=== PATIENT | female | born 1990 | race Asian ===

== ENCOUNTER 2024-10-25 08:00 | Inpatient (IN) | payer BC ==
[2024-10-25] MEDS: LACTATED RINGERS SOLUTION 1000 ML INFUS.BAG IV ONE (08:30)
[2024-10-25 09:59] LABS: BASO % 0.1 % (0-2.0); HEMATOCRIT 28.3 % (32.4-45.2); HEMOGLOBIN 9.4 GM/dL (10.7-15.3); LYMPH % 24.5 % (8-40); MCH 28.7 pg (25.7-33.7); MCHC 33.4 g/dl (32.0-36.0); MEAN CELL VOLUME 85.9 fl (80-96); MEAN PLT VOLUME 7.2 fl (7.5-11.1); MONO % 5.6 % (3.8-10.2); NEUT % 65.8 % (42.8-82.8); PLATELET COUNT 263 10^3/uL (134-434); RBC 3.29 M/mm3 (3.60-5.2); RDW 16.5 % (11.6-15.6); WHITE BLOOD COUNT 8.8 K/mm3 (4.0-10.0)
[2024-10-25 10:14] LABS: INR 0.97 (0.83-1.09); PROTHROMBIN TIME (PATIENT) 11.2 SEC (9.7-13.0)
[2024-10-25 10:15] LABS: POTASSIUM 3.9 mmol/L (3.5-5.1)
[2024-10-25] MEDS: CITRIC ACID/SODIUM CITRATE 30 ML UNIT-DOSE CUP PO ONE (10:15)
[2024-10-25 10:16] LABS: CALCIUM 8.5 mg/dL (8.5-10.1)
[2024-10-25 10:17] LABS: ACTIVATED PTT 24.6 SECONDS (25.2-36.5); BLOOD UREA NITROGEN 6.6 mg/dL (7-18)
[2024-10-25 10:20] VITALS: BMI 31.9
[2024-10-25 10:20] LABS: CREATININE 0.4 mg/dL (0.55-1.3)
[2024-10-25] MEDS ORDERED: FENTANYL CITRATE/PF 50 MCG/ML VIAL ONE (10:29)
[2024-10-25] MEDS ORDERED: morphine SULFATE/PF 1 MG/2 ML (2cc Syringe - QUVA) ONE (10:29)
[2024-10-25] MEDS ORDERED: MISOPROSTOL 200 MCG TABLET ONE (10:55)
[2024-10-25] MEDS ORDERED: PHENYLEPHRINE HCL 10 MG/1 ML SINGLE DOSE VIAL ONE (12:03)
[2024-10-25] MEDS ORDERED: OXYTOCIN 20 UNITS in 0.9% NS 20 UNIT/1,000 ML INFUS.BAG IV ONE (12:11)
[2024-10-25] MEDS ORDERED: ONDANSETRON 4 MG/2 ML VIAL IVPB PRN (12:13)
[2024-10-25] MEDS: OXYTOCIN 20 UNITS in 0.9% NS 20 UNIT/1,000 ML INFUS.BAG IV SCH (12:15)
[2024-10-25] MEDS: ACETAMINOPHEN 1000 MG/100 ML BAG IVPB SCH ×2 (13:20→21:02)
[2024-10-25] MEDS: CEFAZOLIN SODIUM 2 GM in DEXTROSE 5%-WATER 100 ML IVPB SCH (17:11)
[2024-10-25] MEDS: IBUPROFEN 800 MG/8 ML IJ IVPB SCH (17:47)
[2024-10-25] MEDS: SENNOSIDES/DOCUSATE COMBO (SENNA PLUS) TABLET (UD) PO SCH (22:56)
[2024-10-26] MEDS: SODIUM CHLORIDE 1,000 ML IV SCH (08:39)
[2024-10-26 09:05] LABS: BASO % 0.2 % (0-2.0); EOS % 3.1 % (0-4.5); HEMATOCRIT 25.7 % (32.4-45.2); HEMOGLOBIN 8.5 GM/dL (10.7-15.3); LYMPH % 22.9 % (8-40); MCH 28.6 pg (25.7-33.7); MCHC 33.2 g/dl (32.0-36.0); MEAN CELL VOLUME 86.2 fl (80-96); MEAN PLT VOLUME 7.6 fl (7.5-11.1); MONO % 4.6 % (3.8-10.2); NEUT % 69.2 % (42.8-82.8); PLATELET COUNT 248 10^3/uL (134-434); RBC 2.98 M/mm3 (3.60-5.2); RDW 17.3 % (11.6-15.6); WHITE BLOOD COUNT 10.2 K/mm3 (4.0-10.0)
[2024-10-26 10:29] LABS: HEMATOCRIT 26.6 % (32.4-45.2); HEMOGLOBIN 8.7 GM/dL (10.7-15.3); MCH 28.3 pg (25.7-33.7); MCHC 32.8 g/dl (32.0-36.0); MEAN CELL VOLUME 86.4 fl (80-96); MEAN PLT VOLUME 7.3 fl (7.5-11.1); PLATELET COUNT 244 10^3/uL (134-434); RBC 3.08 M/mm3 (3.60-5.2); RDW 17.8 % (11.6-15.6); WHITE BLOOD COUNT 9.8 K/mm3 (4.0-10.0)
[2024-10-26] MEDS ORDERED: BISACODYL 10 MG SUPP.RECT RC PRN (12:13)
[2024-10-26] MEDS: ACETAMINOPHEN 325 MG TABLET (FP) PO SCH (15:51)
[2024-10-26] MEDS: FERROUS SO4 325 MG TABLET (FP) PO SCH ×2 (16:04→16:35)
[2024-10-26] MEDS: SIMETHICONE 80 MG TAB.CHEW (FP) PO PRN (20:21)
[2024-10-26] MEDS: IBUPROFEN 600 MG TABLET (FP) PO PRN (20:22)
[2024-10-26] MEDS: oxyCODONE HCL 5 MG TABLET PO PRN (22:06)
[2024-10-27 02:01] VITALS: RESP 18
[2024-10-27] MEDS: FLU VACCINE (FLULAVAL) PF 45 MCG/0.5 ML SYRINGE 2024-2025 IM ONE (09:53)
[2024-10-27] MEDS: DIPHTH,PERTUSS(ACELL),TET 0.5 ML DISP.SYRIN IM ONE (09:55)
[2024-10-28 09:40] VITALS: BP 120/73; PULSE 75; TEMP 99.9
== END 2024-10-28 12:55 | disposition home or self-care (01) | DRG 788 ==
LOC: JLDR 08:00 → J3W 15:05
PROVIDERS: ADMIT Obstetrics & Gynecology Obstetrics; ATTEND Obstetrics & Gynecology Obstetrics
PROC: 10D00Z1 Extraction of Products of Conception, Low, Open Approach (ICD-10-PCS; principal; 2024-10-25)
DX: O34.219 Maternal care for unspecified type scar from previous cesarean delivery (principal); Z3A.39 39 weeks gestation of pregnancy; Z37.0 Single live birth
CPT/HCPCS: 36415; 59409; 80048; 85025; 85027; 85610; 85730; 86780; 86850; 86900; 86901; 88307-TC; 90656; 90715; J0131